=== PATIENT | male | born 1955 | race African-American/Black ===

== ENCOUNTER 2020-08-25 14:45 | Emergency (ER) | payer SELFPAY ==
[~2020-08-25] VITALS: Ht 177.8 cm; Wt 105.5 kg
[2020-08-25] MEDS ORDERED: CARBAMIDE PEROXIDE EAR DROPS 6.5%, 15ML EACH EAR ONE (15:20)
[2020-08-25] MEDS ORDERED: SODIUM CHLORIDE FLUSH 10ML SYR IVF ONE (15:30)
[2020-08-25 15:47] LABS: BASOPHILS % (AUTO) 1 % (0-1); EOSINOPHILS % (AUTO) 3 % (1-7); LYMPHOCYTES % (AUTO) 25 % (22-44); MEAN CORPUSCULAR HGB CONC 33.1 g/dL (33.2-36.2); MEAN PLATELET VOLUME 7.6 fL (7.4-10.4); MONOCYTES % (AUTO) 8 % (2-9); NEUTROPHILS % (AUTO) 63 % (42-75); PLATELET COUNT 244 x10^3/uL (130-400); RED BLOOD COUNT 5.66 x10^6/uL (4.38-5.82); RED CELL DISTRIBUTION WIDTH 14.9 % (9.4-14.8)
[2020-08-25 15:51] LABS: MD NO
[2020-08-25 15:56] LABS: ALANINE AMINOTRANSFERASE 37 U/L (12-78); ALBUMIN 4.2 g/dL (3.4-5.0); CALCIUM 8.8 mg/dL (8.5-10.1); CREATININE 1.07 mg/dL (0.7-1.3)
[2020-08-25 16:00] LABS: ALKALINE PHOSPHATASE 67 U/L (45-117); BILIRUBIN,TOTAL 0.4 mg/dL (0.2-1.0); TOTAL PROTEIN 7.9 g/dL (6.4-8.2); TROPONIN I < 0.015 ng/mL (0.000-0.045)
[2020-08-25 16:06] LABS: ANION GAP 5 mmol/L (5-15); CHLORIDE 108 mmol/L (98-107)
--- NOTE | 2020-08-25 16:30 | NUR ---
PT EXPRESSING MULTIPLE PAINS THROUGHOUT HIS HEAD. STATES, "I HAVE A PAIN HER ABOVE MY EYE BROW FOR 2 HOURS, THEN A PAIN ABOVE MY LIP RIGHT NOW, AND A PAIN IN THE BACK OF MY HEAD THAT COMES AND GOES". PT REPEATEDLY ASKING FOR A CT OF HEAD TO SEE IF ANYTHING IS IN HIS HEAD. PT DAUGHTER PULLED THIS RN ASIDE AND STATED PT HAS PARANOIA ABOUT ANY PAINS HE HAS. STATED SHE FEELS IT'S MORE MENTAL. WILL INFORM ERP ABOUT SITUATION
--- NOTE | 2020-08-25 17:25 | NUR ---
TASK RN: IRRIGATED BOTH EARS, PT TOLERATED WELL, IT APPEARS EAR WAX STILL STUCK IN RIGHT EAR.
[2020-08-25 17:33] VITALS: BP 163/116
== END 2020-08-25 19:27 | disposition home or self-care (01) ==
LOC: ED 17:34
DX: H61.23 Impacted cerumen, bilateral (principal); R06.00 Dyspnea, unspecified; N50.82 Scrotal pain; G89.29 Other chronic pain; R06.02 Shortness of breath; R94.31 Abnormal electrocardiogram [ECG] [EKG]
CPT/HCPCS: 36415; 71045; 76870; 80053; 83605; 84484; 85025; 85379; 93005; 99285